=== PATIENT | male | born 1990 | race Caucasian/White ===

== ENCOUNTER 2023-03-16 15:42 | Outpatient (CLI) | payer OTHER ==
--- NOTE | 2023-03-16 16:17 | Sleep Patient Instructions ---
Sleep Center Visit Summary - Patient Visit Information Reason for Visit: Initial consult for evaluation of sleep disordered breathing and other sleep issues. - Patient Instructions Instructions Attached: Sleep Study, Sleep Clinic Visit, Sleep Study Home Monitor Additional Instructions: You will be completing a sleep study, either an in-lab polysomnography (PSG) or home sleep study (HST). You will follow-up in the sleep care office after the sleep study is completed to hear the results and talk about therapy, if needed. You will be called by our office staff to schedule this appointment, but you may contact us with any questions. - Clinic Information Contact: [facility] [address] [place] [address] [email or web address] T: [phone]
--- NOTE | 2023-03-16 16:27 | SLEEP CARE CONSULTATION ---
Information from patient questionnaire entered by Dora Berrios. I have reviewed and concur with the information entered by Dora Berrios. This document represents the service I personally performed and the decisions made by me, Chrystal Rodriguez ARNP. History of Present Illness Service Date and Time: 03/16/2023 1542 Reason for Visit: New patient Chief Complaint: reports: Snoring Date of Onset: SINCE HIGH SCHOOL Usual bedtime: 1030-11PM Time it takes to fall asleep: UP TO AN HR Snores at night: Yes Observed to quit breathing while asleep: No Sleeps alone due to snoring: No Number of times waking at night: 0 Recalls having dreams: Yes Usually gets out of bed at: 2498-1320 Feels refreshed in the morning: Yes (only if gets enough sleep) Morning headache: Yes (on weekends) Sleepy or fatigued during the day: Yes Ever fallen asleep while driving: No (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 His current complaints are snoring and unrefreshed sleep. He states his dentist encouraged him to have his sleep checked out because of his snoring. He has been getting comments about loud snoring at night. He denies anyone comment on him stopping breathing. He can feel rested if he gets at least 7 hours of sleep. He states past 1030 in the morning he will wake up with a headache. He states he only does this on the weekends. He does not typically take naps. 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 Patient is Single and lives in . Have you smoked in the past 12 months: No Alcohol use: Yes Alcohol amount and frequency: 2-3 X PER WEEK Caffeine use: Yes Caffeine amount and frequency: 1-2 PER DAY Family History Family history of sleep disordered breathing: Yes Family Hx Sleep Apnea: Father: Snoring, Sleep apnea - Treated, Sibling: Snoring Allergies and Home Medications Known drug allergies: No Drug allergies reviewed: Yes Home medication list reviewed: Yes (not taking daily medications) Review of Systems Weight loss over past 5 years: 8 in last year Cardiovascular: denies: high blood pressure Respiratory: denies: shortness of breath Gastrointestinal: reports: heartburn Neurological: denies: headaches Psychiatric: reports: Attention Deficit Hyperactivity, depression Ear/Nose/Throat: denies: tonsillectomy Physical Exam Vital signs obtained and entered by: DORA Gilliam MA Blood Pressure: 118/70 (LEFT ARM) Cuff size: regular Heart Rate: 76 O2 Saturation: 96 Height: 5 ft 11 in Weight: 257 lb 3.2 oz Body Mass Index: 35.9 BMI Classification: Obese Neck circumference: 17.5 Mouth and throat: narrow oropharynx Soft palate: long Hard palate: normal Uvula: normal Uvula visualization: 25% Mallampati Class III Tongue: enlarged in size with teeth holguin on lateral edges Tonsils: 2+ Neck: normal w/o lymphadenopathy or thyromegaly Heart: regular rate and rhythm Lungs: clear bilaterally Impression and Plan 1. Suspected Obstructive Sleep Apnea-Hypopnea Syndrome, as suggested by a history of loud and irregular snoring, morning headache, unrefreshed sleep, cognitive impairment, and excessive daytime sleepiness. Narrow oropharynx and obesity are common predisposing factors for obstructive sleep apnea-hypopnea syndrome. I recommend proceeding to polysomnography to confirm the diagnosis and to assess severity. If the patient has significant sleep disordered breathing, a manual CPAP titration study will also be performed to find the optimal treatment pressure. I informed the patient of what the sleep studies involve and after some discussion, obtained agreement to proceed. The pathophysiology of obstructive sleep apnea-hypopnea syndrome was discussed with the patient and health risks of cardiovascular and cerebrovascular disease if not treated. Risks of drowsy driving discussed in detail and patient advised to avoid long distance driving and to veneer puller at the first sign of drowsiness. Patient agreed to plan. * Schedule polysomnography +- manual CPAP titration study and return in 1-2 weeks after the study to discuss result and initiate therapy. * Avoid long distance driving or driving when feeling sleepy. * Avoid alcohol, sedative and muscle relaxant around bedtime. * Attempt to lose weight. * Review instructions provided by trained office staff on how to prepare for the sleep study. * Return for follow-up after sleep study completed. Counseling Topics: Weight loss health impact Visit Type: In Office Time Spent with Patient (minutes): 30 Provider Statement: I spent 100% of the Face to Face Visit with the patient with greater than 50% spent counseling the patient and coordination of care.
[2023-03-16 16:35] VITALS: BP 118/70
== END 2023-03-16 15:43 | disposition home or self-care (01) ==
LOC: SC 15:42
PROVIDERS: ATTEND Nurse Practitioner Family
DX: G47.10 Hypersomnia, unspecified (principal); R53.83 Other fatigue; R06.83 Snoring; G47.8 Other sleep disorders; E66.9 Obesity, unspecified; Z68.35 Body mass index [BMI] 35.0-35.9, adult
CPT/HCPCS: 99203; 99212